=== PATIENT | male | born 1970 | race Caucasian/White ===

== ENCOUNTER 2020-05-24 16:08 | Outpatient (CLI) | payer OTHER ==
[2020-05-24 16:51] VITALS: BP 128/79
--- NOTE | 2020-05-24 16:51 | SLEEP CARE CONSULTATION ---
Information from patient questionnaire entered by Katarina Brink. I have reviewed and concur with the information entered by Katarina Brink. This document represents the service I personally performed and the decisions made by me, Zee Sebastian ARNP. History of Present Illness Service Date and Time: 05/24/2020 1608 Reason for Visit: New patient, Previously diagnosed sleep apnea, Other (He was CPAP intolerant due to claustrophobia and wants oral device Rx) Chief Complaint: reports: Snoring, Observed pauses in breathing Date of Onset: 20 + hours Usual bedtime: 10:00 PM Time it takes to fall asleep: 5 minutes Snores at night: Yes Observed to quit breathing while asleep: Yes Sleeps alone due to snoring: Yes Number of times waking at night: 3 - 5 Reasons for waking at night: reports: Bathroom Toss, Turn, or Twitch while sleeping: Yes Recalls having dreams: Yes Usually gets out of bed at: 6:30 Feels refreshed in the morning: Yes Morning headache: No Sleepy or fatigued during the day: No Ever fallen asleep while driving: No Takes day naps: No Dreams during day naps: No Year and Where: 2013 Sleep Lab Additional HPI information: SANDY MARTINO was diagnosed to have unknown severity obstructive sleep apnea-hypopnea syndrome and comes in to try oral appliance therapy. He has not been on CPAP therapy or any other therapy for his RICH for the last 7 years since last study. 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 Patient is and lives in [place]. Have you smoked in the past 12 months: No Alcohol use: Yes Alcohol amount and frequency: 1 - 2, 5 + days Caffeine use: Yes Caffeine amount and frequency: Occasional soda Family History Family history of sleep disordered breathing: Yes (Snoring - Father) Family Hx Sleep Apnea: Father: Snoring Allergies and Home Medications Drug allergies reviewed: Yes (NKDA) Home medication list reviewed: Yes Allergy and home medication list: Cholestyramine powder Escitalopram Glucosamine pantoprazole potassium chloride Chlorthalidone Metoprolol Ydeiogc-Ppg-O-day Review of Systems Weight gain over past 5 years: 20 Cardiovascular: reports: high blood pressure, irregular heart rate or pulse Gastrointestinal: reports: heartburn, diarrhea Urinary: reports: impotence Neurological: reports: other (TBI) Psychiatric: reports: anxiety, claustrophobia Ear/Nose/Throat: reports: nasal congestion, dry mouth/throat, wisdom teeth removed Musculoskeletal: reports: joint pain Physical Exam Blood Pressure: 128/79 Cuff size: wrist Heart Rate: 70 O2 Saturation: 97 Height: 6 ft 6 in Weight: 250 lb Body Mass Index: 28.8 BMI Classification: Overweight Impression and Plan 1. Obstructive Sleep Apnea-Hypopnea Syndrome, unknown. He has had a previous diagnosis and we are trying to get his previous sleep study to verify. We may need him to repeat a sleep study since he has not been on any CPAP or other treatment since 2013. He was unable to tolerate the CPAP mask due to his severe claustrophobia. He would like to try an oral appliance. I reviewed with patient that an oral appliance is effective in mild obstructive sleep apnea but could be considered in moderate sleep apnea depending on severity. This oral device may not be covered by insurance and he states he is aware. We will give him a copy of the list of dentist who are certified to make these appliances while we wait for his study, etc. He voiced understanding and agreement with plan. We will call patient with further plans once we know if we need to order a new study for verification before we move forward with the oral appliance therapy. * Verify diagnosis and severity of RICH, awaiting original study results. * May need to order new sleep study to start him on oral appliance therapy * Avoid long distance driving or driving when feeling sleepy. * Avoid alcohol, sedative and muscle relaxant around bedtime. * Return depends on if we need a sleep study or not, may be 1-3 months. Counseling Topics: Weight loss health impact Visit Type: In Office Time Spent with Patient (minutes): 30 Provider Statement: I spent 100% of the Face to Face Visit with the patient with greater than 50% spent counseling the patient and coordination of care.
== END 2020-05-24 16:09 | disposition home or self-care (01) ==
LOC: SC 16:08
PROVIDERS: ATTEND Nurse Practitioner Family
DX: G47.33 Obstructive sleep apnea (adult) (pediatric) (principal); E66.3 Overweight; Z68.28 Body mass index [BMI] 28.0-28.9, adult
CPT/HCPCS: 99203; 99212

== ENCOUNTER 2021-03-06 15:51 | Outpatient (CLI) | payer OTHER ==
[2021-03-06 16:25] VITALS: BP 113/74
--- NOTE | 2021-03-06 16:25 | SLEEP CARE CONSULTATION ---
Information from patient questionnaire entered by Katelynn Garcia MA. I have reviewed and concur with the information entered by Katelynn Garcia MA. This document represents the service I personally performed and the decisions made by , Zee Sebastian ARNP. History of Present Illness Service Date and Time: 03/06/2021 1551 Previous diagnosis: Moderate, Obstructive Sleep Apnea-Hypopnea Syndrome AHI: 20.7 ([facility], 06/2013) Reason for follow up: other (f/u non cpap ) Year and Where: 2013 Sleep Lab HPI additional information: SANDY MARTINO was diagnosed to have moderate, AHI 20.7, obstructive sleep apnea-hypopnea syndrome and returns today for oral appliance therapy three month follow-up. He had his device made by Dr. Carmen DDS. Sleep Study - Results Year and Where: 2013 Sleep Lab CPAP Compliance Data Compliance data discussion: He has been using his oral appliance nightly. He did miss a couple nights due to a head cold but otherwise every night. He has had no issues with the oral appliance. No jaw pain or discomfort. He is on the 3rd increment of adjustment for his device. Subjective Missed days of use due to: reports: illness On therapy, patient: reports: sleeping better, awakening more refreshed, being more awake and alert during the day, more rested overall, other (snoring is drastically reduced). denies: drowsiness while driving Initial [place] Sleepiness Scale score: 5 (in 2020) Current [place] Sleepiness Scale score: 3 (IN 2020) Allergies and Home Medications Home medication list reviewed: Yes (no changes) Review of Systems Review of systems same as previous: Yes (no changes) Physical Exam Vital signs obtained and entered by: Addis Garcia CMA KIAN Blood Pressure: 113/74 (LEFT) Cuff size: wrist Heart Rate: 68 O2 Saturation: 97 (WITH MASK) Height: 6 ft 6 in Weight: 245 lb (WITH BOOTS) Body Mass Index: 28.3 BMI Classification: Overweight Impression and Plan 1. Obstructive Sleep Apnea-Hypopnea Syndrome, moderate. On oral appliance therapy, the patient has better sleep quality and is more rested overall. He has been using his oral appliance with good results for the last 3-4 months. He is on his 3rd adjustment with no jaw soreness or other issues with use. He is feeling rested, has day energy and his snoring has greatly reduced (patient states, according to his ). Patient has a reduction of his symptoms and is comfortable with treatment, a polysomnography will be ordered using the oral appliance to check efficacy of treatment. I will follow up with him after his sleep study is completed. Patient's apnea severity and rationale for treatment to reduce apnea, improve sleep quality and reduce cardiovascular and cerebrovascular events was reviewed. Patient was encouraged to lose weight for their overall health and to reduce apneas. * Continue oral appliance therapy * Polysomnography to check effectiveness of oral appliance therapy * Notify me if snoring with mask or feeling that the pressure is too much or too little * Attempt to lose weight * Call this office if any problems * Return for follow up after PSG, or sooner if concerns arise Counseling Topics: Weight loss health impact Visit Type: In Office Time Spent with Patient (minutes): 12 Provider Statement: I spent 100% of the Face to Face Visit with the patient with greater than 50% spent counseling the patient and coordination of care.
== END 2021-03-06 15:52 | disposition home or self-care (01) ==
LOC: SC 15:51
PROVIDERS: ATTEND Nurse Practitioner Family
DX: G47.33 Obstructive sleep apnea (adult) (pediatric) (principal)
CPT/HCPCS: 99212

== ENCOUNTER 2021-05-10 14:10 | Outpatient (CLI) | payer OTHER ==
--- NOTE | 2021-05-10 17:23 | XRAY Report ---
PROCEDURE: Ribs w/PA Chest RT INDICATIONS: RIGHT ANTERIOR RIB PAIN BELOW BREAST/ NO TRAUMA TECHNIQUE: 4 views of the right ribs were acquired, along with a single view chest. COMPARISON: None FINDINGS: Surgical changes and devices: None. Bones and chest wall: No fractures or dislocations. No suspicious bony lesions. Overlying soft tis sues appear unremarkable. Lungs and pleura: No pleural effusions or pneumothorax. Lungs appear clear. Mediastinum: Mediastinal contours appear normal. Heart size is normal. IMPRESSION: No obvious displaced right rib fracture is seen. No acute cardiopulmonary pathology. Reviewed by: Gabriel Rene MD on 05/10/2021 5:22 PM PST Approved by: Gabriel Rene MD on 05/10/2021 5:22 PM PST Station ID: [id number]
--- NOTE | 2021-05-10 17:24 | XRAY Report ---
PROCEDURE: Thoracic Spine 3 View INDICATIONS: RIGHT RIB PAIN, ASSESS FOR DDD, NO TRUAMA TECHNIQUE: 3 views of the thoracic spine were acquired. COMPARISON: None. FINDINGS: Bones: No fractures or dislocations. No suspicious bony lesions. 12 pairs of ribs are noted, and a ppear intact where visualized. Soft tissues: No paravertebral stripe thickening. IMPRESSION: No acute compression fracture or spondylolisthesis is seen in thoracic spine. No significant degenera tive disc disease. Reviewed by: Gabriel Rene MD on 05/10/2021 5:22 PM PST Approved by: Gabriel Rene MD on 05/10/2021 5:22 PM PST Station ID: [id number]
== END 2021-05-10 14:11 | disposition home or self-care (01) ==
LOC: DI.N 14:10
PROVIDERS: ATTEND Internal Medicine
DX: R07.81 Pleurodynia (principal)

== ENCOUNTER 2021-06-11 21:39 | Outpatient (CLI) | payer OTHER | END 2021-06-11 21:40 | disposition home or self-care (01) | LOC: SC 21:39 | PROVIDERS: ATTEND Nurse Practitioner Family | DX: G47.33 Obstructive sleep apnea (adult) (pediatric) (principal) | CPT/HCPCS: 95810 ==

== ENCOUNTER 2021-07-11 16:04 | Outpatient (CLI) | payer OTHER ==
[2021-07-11 16:32] VITALS: BP 127/75
--- NOTE | 2021-07-11 16:32 | SLEEP CARE CONSULTATION ---
Information from patient questionnaire entered by Katelynn Garcia MA. I have reviewed and concur with the information entered by Katelynn Garcia MA. This document represents the service I personally performed and the decisions made by , Zee Sebastian ARNP. History of Present Illness Service Date and Time: 07/11/2021 1604 Initial [place] Sleepiness Scale score: 5 (in 2020) Current [place] Sleepiness Scale score: 3 (06/2021) Additional HPI information: SANDY MARTINO returns for follow up of the sleep study with his oral appliance in place that was performed on 06-11-2021. The patient was informed of the following polysomnography findings: Patient had no significant sleep disordered breathing with an average AHI of 4.3 and mariano oxygen saturation of 88%. However patient supine AHI was elevated at 7.8. Sleep Study - Results Type of Sleep Study: Polysomnography (F/U POLY, 06/11/21 [facility] Year and Where: 2013 Sleep Lab Polysomnography/Home Sleep Study results: IMPRESSION: This in-laboratory polysomnography was performed with the patient wearing his oral appliance as a treatment for obstructive sleep apnea-hypopnea. The quality of the study is good. The patient had reduced sleep efficiency due to two prolonged awakenings after the sleep onset. The sleep architecture was abnormal for sleep fragmentation and reduced amount of time spent in REM and slow wave sleep (N3). Respiratory monitoring showed no significant sleep disordered breathing (AHI = 4.3) or hypoxia (mariano oxygen saturation of 88%). The few respiratory events occurred almost exclusively during supine sleep (supine AHI = 7.8; non-supine = 1.71). Snore was light to moderate in intensity. There was no significant periodic leg movement of sleep. Cardiac rhythm was normal sinus rhythm without significant arrhythmia. No abnormal behavior (parasomnia) observed during the night. Allergies and Home Medications Home medication list reviewed: Yes (no changes) Review of Systems Review of systems same as previous: Yes (no changes) Physical Exam Vital signs obtained and entered by: BENJAMIN SCHUMACHER Blood Pressure: 127/75 (LEFT, PULSE 61, RESP 16) Cuff size: wrist Heart Rate: 62 O2 Saturation: 97 (CLOTH) Height: 6 ft 6 in Weight: 240 lb (CLOTHES) Body Mass Index: 27.7 BMI Classification: Overweight Impression and Plan 1. Obstructive Sleep Apnea-Hypopnea Syndrome, moderate. Using oral mandubular appliance therapy, the patient has better sleep quality and is more rested overall. He states that the oral appliance is comfortable and he is wearing it every night without any problems. He returns today after a follow up polysomnography with oral appliance in place and was found to have adequate control of his sleep apnea with the exception of sleeping supine. His supine AHI was elevated at 7.8 and he was instructed to avoid supine sleep. He will need to practice positional therapy as well as oral appliance therapy to control his sleep apnea. He voiced understanding and agreement with plan. Patient's apnea severity and rationale for treatment to reduce apnea, improve sleep quality and reduce cardiovascular and cerebrovascular events was reviewed. Patient is a little overweight and he was encouraged to try to lose weight. -Continue oral appliance therapy -Attempt to lose weight -Call this office if any problems -Return for follow up in 6 months, or sooner if concerns arise Counseling Topics: Sleeping position, Weight loss health impact Visit Type: In Office Time Spent with Patient (minutes): 11 Provider Statement: I spent 100% of the Face to Face Visit with the patient with greater than 50% spent counseling the patient and coordination of care.
== END 2021-07-11 16:05 | disposition home or self-care (01) ==
LOC: SC 16:04
PROVIDERS: ATTEND Nurse Practitioner Family
DX: G47.33 Obstructive sleep apnea (adult) (pediatric) (principal); E66.3 Overweight; Z68.27 Body mass index [BMI] 27.0-27.9, adult
CPT/HCPCS: 99212